=== PATIENT | female | born 1975 | race African-American/Black ===

== ENCOUNTER 2024-04-25 11:56 | Inpatient (IN) | payer BC, OTHER ==
[~2024-04-25] VITALS: Ht 165.1 cm; Wt 139.7 kg
[~2024-04-25 11:56] MED LIST: HYDR-2792; LABE100T7
[2024-04-25] MEDS ORDERED: cloNIDine HCL 0.1 MG TAB PO ONE (12:00)
[2024-04-25] MEDS: IPRATROPIUM BROM 0.5 MG/2.5ML INH SOL NEB ONE ×2 (12:51→20:53)
[2024-04-25] MEDS: ALBUTEROL SULF 2.5 MG/0.5ML(0.5%) NEB SOLN NEB ONE ×2 (12:51→20:53)
[2024-04-25 15:41] LABS: Chloride 105 mmol/L (98-107); Potassium 3.3 mmol/L (3.5-5.1); Sodium 141 mmol/L (136-145)
[2024-04-25 15:42] LABS: Anion Gap 7 (5-15); Carbon Dioxide 29 mmol/L (20-31)
[2024-04-25 15:43] LABS: Basophils # (auto) 0.1 10 ^3/uL (0-0.2); Calcium 9.7 mg/dL (8.7-10.4); Eosinophils # (auto) 0.2 10 ^3/uL (0-0.8); Eosinophils % (auto) 2.2 % (0.0-7.0); Hematocrit 40.1 % (36.0-46.0); Hemoglobin 12.6 g/dL (12.2-16.2); Lymphocytes # (auto) 2.3 10 ^3/uL (0.4-5.4); Lymphocytes % (auto) 24.8 % (10.0-50.0); Mean Corpuscular Hemoglobin 21.2 pg (28.0-32.0); Mean Corpuscular Hgb Conc. 31.3 g/dL (32.0-36.0); Mean Corpuscular Volume 67.7 fL (80.0-100.0); Monocytes # (auto) 0.5 10 ^3/uL (0-1.3); Monocytes % (auto) 5.5 % (0.0-12.0); Neutrophils # (auto) 6.1 10 ^3/uL (1.6-8.6); Neutrophils % (auto) 66.5 % (37.0-80.0); Nucleated Red Blood Cells % 0.1 %; Platelet Count (auto) 204 10^3/uL (140-450); Red Blood Cells 5.93 10^6/uL (4.0-5.20); Red Cell Distribution Width 19.7 % (11.8-14.3); White Blood Cell 9.2 10^3/uL (4.4-10.8)
[2024-04-25 15:47] LABS: Glucose 140 mg/dL (74-106)
[2024-04-25 15:48] LABS: BUN/Creatinine Ratio 14.3 (10.0-20.0); Blood Urea Nitrogen 12 mg/dL (9-23)
[2024-04-25 16:16] LABS: Anisocytosis Slight; Hypochromia Moderate; Platelet Estimate Adequate
[2024-04-25] MEDS: methylPREDNISolone SOD SUCC 125 MG/2 ML VL IV ONE (20:18)
[2024-04-25] MEDS: POTASSIUM CHL 20 Meq TABLET PO ONE (20:18)
[2024-04-25] MEDS: NITROGLYCERIN 2% OINT 1GM PKG TD ONE (20:19)
[2024-04-25] MEDS: FUROSEMIDE 40 MG/4 ML VIAL IV ONE (20:19)
[2024-04-25 20:27] LABS: Urine Bacteria FEW /hpf (None Seen); Urine Blood Negative /uL (Negative); Urine Clarity Turbid (Clear); Urine Color Yellow (Yellow); Urine Mucus FEW (None Seen); Urine Protein, UAD 1+ (Negative); Urine Specific Gravity 1.018 (1.001-1.035); Urine Urobilinogen Normal (Negative); Urine WBC 7 /hpf (0 - 5)
[2024-04-25 20:33] VITALS: PULSE 89; RESP 18; O2SAT 94
[2024-04-25] MEDS: hydrALAZINE HCL 20 MG/ML VL IV ONE (22:12)
[2024-04-26] VITALS (11 sets, daily range): BP systolic 164–212; BP diastolic 82–127; PULSE 92–101; RESP 10–24; TEMP 97.2; O2SAT 92–99
[2024-04-26] MEDS: hydrALAZINE HCL 20 MG/ML VL IV ONE (01:32)
[2024-04-26] MEDS: ALBUTEROL SULF 2.5 MG/0.5ML(0.5%) NEB SOLN NEB SCH (06:41)
[2024-04-26] MEDS: IPRATROPIUM BROM 0.5 MG/2.5ML INH SOL NEB SCH (06:41)
[2024-04-26] MEDS: METOPROLOL TARTRATE 1MG/1ML-5ML VIAL IV PRN (06:52)
[2024-04-26] MEDS: hydrALAZINE HCL 20 MG/ML VL IV PRN (07:46)
[2024-04-26] MEDS: ACETAMINOPHEN 325 MG TAB PO PRN (10:00)
[2024-04-26] MEDS: METOPROLOL TARTRATE 25 MG TAB PO SCH (10:00)
[2024-04-26] MEDS: amLODIPine BESYLATE 5 MG TAB PO SCH (10:01)
[2024-04-26] MEDS: LABETALOL HCL 200 MG TAB PO SCH (10:01)
[2024-04-26] MEDS: LOSARTAN POTASSIUM 50 MG TAB PO SCH (10:05)
[2024-04-26] MEDS: methylPREDNISolone SOD SUCC 40 MG/ML VL IV SCH (10:05)
[2024-04-26] MEDS: hydrALAZINE HCL 20 MG/ML VL IV SCH (12:36)
[2024-04-26] MEDS: cloNIDine HCL 0.1 MG TAB PO SCH (14:25)
[2024-04-26 22:29] LABS: Eosinophils # (auto) 0 10 ^3/uL (0-0.8); Hemoglobin 12.4 g/dL (12.2-16.2); Mean Corpuscular Hemoglobin 20.8 pg (28.0-32.0); Nucleated Red Blood Cells % 0.1 %; Platelet Count (auto) 210 10^3/uL (140-450); Red Blood Cells 5.96 10^6/uL (4.0-5.20)
[2024-04-26 22:31] LABS: Basophils # (auto) 0.1 10 ^3/uL (0-0.2); Basophils % (auto) 0.4 % (0.0-2.0); Hematocrit 40.4 % (36.0-46.0); Lymphocytes # (auto) 1.3 10 ^3/uL (0.4-5.4); Lymphocytes % (auto) 8.4 % (10.0-50.0); Mean Corpuscular Hgb Conc. 30.7 g/dL (32.0-36.0); Mean Corpuscular Volume 67.8 fL (80.0-100.0); Monocytes # (auto) 0.6 10 ^3/uL (0-1.3); Monocytes % (auto) 4.2 % (0.0-12.0); Neutrophils # (auto) 13.5 10 ^3/uL (1.6-8.6); Red Cell Distribution Width 19.5 % (11.8-14.3); White Blood Cell 15.5 10^3/uL (4.4-10.8)
[2024-04-26 22:47] LABS: Alanine Aminotransferase 10 U/L (7-40); Albumin 4.5 g/dL (3.2-4.8); Alkaline Phosphatase 94 U/L (46-116); Anion Gap 8 (5-15); Aspartate Aminotransferase 10 U/L (13-40); BUN/Creatinine Ratio 12.7 (10.0-20.0); Bilirubin, Total 0.4 mg/dL (0.2-1.0); Blood Urea Nitrogen 14 mg/dL (9-23); Calcium 10.3 mg/dL (8.7-10.4); Carbon Dioxide 29 mmol/L (20-31); Chloride 103 mmol/L (98-107); Glucose 234 mg/dL (74-106); Potassium 3.5 mmol/L (3.5-5.1); Sodium 140 mmol/L (136-145); Total Protein 7.6 g/dL (5.7-8.2)
[2024-04-26 23:05] LABS: Hypochromia Marked
[2024-04-26 23:06] LABS: Platelet Estimate Adequate
[2024-04-27] VITALS (11 sets, daily range): BP systolic 140–164; BP diastolic 76–86; PULSE 90–101; RESP 18–21; TEMP 97.2–97.9; O2SAT 93–100
[2024-04-27 04:09] LABS: Basophils # (auto) 0 10 ^3/uL (0-0.2); Basophils % (auto) 0.2 % (0.0-2.0); Chloride 104 mmol/L (98-107); Eosinophils # (auto) 0 10 ^3/uL (0-0.8); Monocytes # (auto) 0.5 10 ^3/uL (0-1.3); Potassium 3.9 mmol/L (3.5-5.1); Sodium 138 mmol/L (136-145)
[2024-04-27 04:10] LABS: Anion Gap 9 (5-15); Calcium 10.2 mg/dL (8.7-10.4); Carbon Dioxide 25 mmol/L (20-31)
[2024-04-27 04:12] LABS: Hematocrit 39.6 % (36.0-46.0); Hemoglobin 12.5 g/dL (12.2-16.2); Lymphocytes # (auto) 0.9 10 ^3/uL (0.4-5.4); Lymphocytes % (auto) 6.1 % (10.0-50.0); Mean Corpuscular Hemoglobin 21.3 pg (28.0-32.0); Mean Corpuscular Hgb Conc. 31.5 g/dL (32.0-36.0); Mean Corpuscular Volume 67.8 fL (80.0-100.0); Monocytes % (auto) 3.3 % (0.0-12.0); Neutrophils # (auto) 14.1 10 ^3/uL (1.6-8.6); Neutrophils % (auto) 90.4 % (37.0-80.0); Nucleated Red Blood Cells % 0.1 %; Platelet Count (auto) 218 10^3/uL (140-450); Red Blood Cells 5.84 10^6/uL (4.0-5.20); Red Cell Distribution Width 19.7 % (11.8-14.3); White Blood Cell 15.5 10^3/uL (4.4-10.8)
[2024-04-27 04:15] LABS: BUN/Creatinine Ratio 15.3 (10.0-20.0); Blood Urea Nitrogen 15 mg/dL (9-23); Glucose 203 mg/dL (74-106)
[2024-04-27] MEDS: amLODIPine BESYLATE 5 MG TAB PO SCH (09:14)
[2024-04-27 10:58] LABS: Alanine Aminotransferase 10 U/L (7-40); Albumin 4.5 g/dL (3.2-4.8); Alkaline Phosphatase 94 U/L (46-116); Anion Gap 7 (5-15); Aspartate Aminotransferase < 8 U/L (13-40); BUN/Creatinine Ratio 15.7 (10.0-20.0); Bilirubin, Total 0.3 mg/dL (0.2-1.0); Blood Urea Nitrogen 17 mg/dL (9-23); Calcium 10.3 mg/dL (8.7-10.4); Carbon Dioxide 29 mmol/L (20-31); Chloride 104 mmol/L (98-107); Glucose 209 mg/dL (74-106); Sodium 140 mmol/L (136-145); Total Protein 7.6 g/dL (5.7-8.2)
[2024-04-27] MEDS ORDERED: ALBUAER3 IN (16:09)
[2024-04-27] MEDS ORDERED: MET25T PO (16:09)
[2024-04-27] MEDS ORDERED: CLON0.1T PO (16:09)
[2024-04-27] MEDS ORDERED: AML5T PO (16:09)
[2024-04-27] MEDS ORDERED: METH4PAK PO (16:09)
[2024-04-27] MEDS ORDERED: IPRA0.00 IN (20:20)
== END 2024-04-27 21:40 | disposition home health service (06) | DRG 202 ==
LOC: ER 11:56 → TELE 04-26 05:11 → TELE-EAST 04-27 16:07
PROVIDERS: ADMIT Internal Medicine; ATTEND Internal Medicine
DX: J45.901 Unspecified asthma with (acute) exacerbation (principal); I16.1 Hypertensive emergency; Z68.43 Body mass index [BMI] 50.0-59.9, adult; E66.01 Morbid (severe) obesity due to excess calories; I50.9 Heart failure, unspecified; I11.0 Hypertensive heart disease with heart failure; Z91.199 Patient's noncompliance with other medical treatment and regimen due to unspecified reason; Z79.899 Other long term (current) drug therapy
CPT/HCPCS: 36415; 71045; 80048; 80053; 81001; 83880; 84484; 84702; 85025; 93005; 93306; 94640; 96374; 96375; 96376; 99291; G0378